=== PATIENT | female | born 1960 | race Caucasian/White ===

== ENCOUNTER → 2017-07-19 12:50 | Outpatient (CLI) | payer OTHER, SELFPAY ==
--- NOTE | 2017-07-19 12:53 | HPBD_ITS ---
STUDY: DUAL ENERGY X-RAY ABSORPTIOMETRY / DXA REASON FOR EXAM: Female, 56 years old. Postmenopausal female. Patient taking calcium and exercising. TECHNIQUE: Bone Mineral Density (BMD) measurements of lumbar spine and bilateral hips were obtained. COMPARISON: None. FINDINGS: Lumbar Spine (L1-L4): g/cm2 (0.941) / T-score (-2.0) / Z-score (-1.0) Findings are suggestive of osteoporosis with a high fracture risk. Left Femur Total: g/cm2 (0.787) / T-score (-1.8) / Z-score (-1.0) Left Femoral Neck: g/cm2 (0.747) / T-score (-2.1) / Z-score (-1.0) Right Femur Total: g/cm2 (0.793) / T-score (-1.7) / Z-score (-1.0) Right Femoral Neck: g/cm2 (0.727) / T-score (-2.2) / Z-score (-1.1) HPBD/Dexa Bone Density Study (HP) IMPRESSION: The patient is considered osteoporotic as outlined below according to World Jamel Organization (WHO) criteria with a high fracture risk. Reference Information: The T-score is the number of standard deviations above or below the standard which is normal for young adults at their peak bone mineral density. The World Health Organization (WHO) interprets the T-scores as follows: Above -1 Normal bone density Between -1 and -2.5 Osteopenia Equal to / or below -2.5 Osteoporosis As a practical clinical guideline, osteopenia may be graded as follows: Mild -1 through -1.5 Moderate -1.6 through -2.0 Severe -2.1 through -2.4 The Z-score is the number of standard deviations above or below age-matched controls. A Z-score of less than -1.5 would be considered abnormal. References: 1. NIH Osteoporosis and Related Bone Diseases http://www.osteo.org 2. International Society for Clinical Densitometry http://www.iscd.org 3. National Osteoporosis Foundation http://www.nof.org Electronically Signed: Mauro Benitez DO at 8:38 EDT Tel [phone], Service support ,
== END ==
PROVIDERS: Family Provider Family Medicine; PCP Family Medicine; Visit Provider Family Medicine
DX: L40.50 Arthropathic psoriasis, unspecified (principal)
CPT/HCPCS: 77080

== ENCOUNTER → 2017-11-15 15:57 | Outpatient (CLI) | payer OTHER, SELFPAY ==
[2017-11-15 18:26] LABS: Anion Gap 7 (5-15); BUN 15 mg/dL (7-18); BUN/Creat Ratio 16.3 RATIO (10-20); Calcium,Total 9.2 mg/dL (8.5-10.1); Chloride 103 mmol/L (98-107); Creatinine, Serum 0.92 mg/dL (0.55-1.02); EST Glomerular Filtration Rate 67 mL/min (>60); Est Glom Filt Rate - Afr Amer 81 mL/min (>60); Glucose 76 mg/dL (74-106); Potassium 3.8 mmol/L (3.5-5.1); Sodium Level 140 mmol/L (136-145); T4 Free Direct 1.07 ng/dL (0.76-1.46); Thyroid Stim Hormone (TSH) 2.11 uIU/mL (0.358-3.74)
[2017-11-16 08:34] LABS: Vitamin D,25 Hydroxy 32.3 ng/mL (29.95-100.01)
== END ==
PROVIDERS: Family Provider Family Medicine; PCP Family Medicine; Visit Provider Family Medicine
DX: M85.80 Other specified disorders of bone density and structure, unspecified site (principal); E03.9 Hypothyroidism, unspecified
CPT/HCPCS: 36415; 80048; 82306; 84439; 84443

== ENCOUNTER → 2018-06-07 08:28 | Outpatient (CLI) | payer OTHER, SELFPAY ==
[2018-06-07 10:29] LABS: Erythrocyte Sedimentation Rate 4 mm/hr (0-30)
[2018-06-07 10:30] LABS: Hematocrit 38.7 % (37-47); Hemoglobin 12.3 g/dl (12.0-15.0); Mean Corp Hgb Conc 31.8 g/gl (32-36); Mean Corpuscular Hgb 30.1 pg (27.0-32.0); Mean Corpuscular Volume 94.6 fL (81-99); Mean Platelet Vol. 11.5 fl (6.2-12.0); Platelet Count 237 K/mm3 (150-450); RBC Distribution Width SD 44.9 fl (35.1-43.9); Red Blood Count 4.09 M/mm3 (4.2-5.4); White Blood Count 3.5 K/mm3 (4.4-11.0)
[2018-06-07 10:33] LABS: Scan Indicated on CBC? Y/N NO
[2018-06-07 10:41] LABS: Vitamin B12 1341 pg/mL (211-911); Vitamin D,25 Hydroxy 34.2 ng/mL (29.95-100.01)
[2018-06-07 10:44] LABS: AST(SGOT) 18 U/L (15-37); Alanine Aminotransfer ALT/SGPT 26 U/L (13-56); Albumin, Serum 3.8 g/dL (3.2-5.0); Alkaline Phosphatase 56 U/L (45-117); Anion Gap 8 (5-15); BUN 16 mg/dL (7-18); BUN/Creat Ratio 17.6 RATIO (10-20); Calcium,Total 8.9 mg/dL (8.5-10.1); Chloride 105 mmol/L (98-107); Creatinine, Serum 0.91 mg/dL (0.55-1.02); EST Glomerular Filtration Rate 68 mL/min (>60); Est Glom Filt Rate - Afr Amer 82 mL/min (>60); Ferritin 39 ng/mL (8-252); Free T3 2.2 pg/mL (2.18-3.98); Globulin 3.8 g/dL (2.2-4.2); Glucose 53 mg/dL (74-106); Iron 78 ug/dL (50-170); Potassium 3.6 mmol/L (3.5-5.1); Protein, Total 7.6 g/dL (6.4-8.2); Sodium Level 144 mmol/L (136-145); Thyroid Stim Hormone (TSH) 0.78 uIU/mL (0.358-3.74)
[2018-06-09 19:45] LABS: ANTINUCLEAR ANTIBODIES DIRECT Negative (Negative)
[2018-06-12 11:15] LABS: Vitamin B1, Thiamine 107.4 nmol/L (66.5-200.0)
== END ==
PROVIDERS: Family Provider Family Medicine; PCP Family Medicine; Visit Provider Family Medicine
DX: L40.50 Arthropathic psoriasis, unspecified (principal); L65.9 Nonscarring hair loss, unspecified; E03.9 Hypothyroidism, unspecified
CPT/HCPCS: 80053; 82306; 82607; 82728; 83540; 84425; 84439; 84443; 84481; 85027; 85652; 86038

== ENCOUNTER → 2018-06-19 10:06 | Outpatient (CLI) | payer OTHER, SELFPAY ==
[2018-06-22 12:23] LABS: Thyroid Peroxidase AB 24 IU/mL (0-34)
== END ==
PROVIDERS: Family Provider Family Medicine; PCP Family Medicine; Referring Provider Dermatology Pediatric Dermatology; Visit Provider Dermatology Pediatric Dermatology
DX: L65.0 Telogen effluvium (principal); L40.0 Psoriasis vulgaris; L40.59 Other psoriatic arthropathy
CPT/HCPCS: 36415; 86376

== ENCOUNTER 2018-11-05 20:07 | Emergency (ER) | payer OTHER, SELFPAY ==
[2018-11-05 20:09] VITALS: BP 182/99; PULSE 69; RESP 12; TEMP 36.9; O2SAT 99; BMI 19.8
--- NOTE | 2018-11-05 20:09 | ED.RN ---
CALLED FOR EKG PER RN REQUEST, PULLED OLD EKGS FOR
--- NOTE | 2018-11-05 20:13 | RAD_ITS ---
STUDY: X-RAY CHEST REASON FOR EXAM: Female, 58 years old. Chest pain TECHNIQUE: Single AP portable view of the chest. COMPARISON: 06/16/2013 FINDINGS: There is hyperinflation of the lungs consistent with chronic obstructive lung disease (COPD). There is no demonstrated pleural abnormality. Normal size heart. Normal mediastinum and lian. Normal visualized pulmonary arteries. Normal visualized aortic arch and descending thoracic aorta. Normal visualized thoracic spine. Normal visualized ribs, clavicles, and shoulders. There is no demonstrated abnormality of the visualized soft tissue structures of the upper abdomen. RAD/Chest 1 View (Portable) IMPRESSION: Normal x-ray examination of the chest. Electronically Signed: Chase Alexander DO at 20:28 EDT Tel , Service support ,
--- NOTE | 2018-11-05 20:13 | EKG12_ITS ---
Test Reason : CP Blood Pressure : / mmHG Vent. Rate : 073 BPM Atrial Rate : 073 BPM P-R Int : 182 ms QRS Dur : 072 ms QT Int : 402 ms P-R-T Axes : 077 072 073 degrees QTc Int : 442 ms Sinus rhythm with occasional Premature ventricular complexes Septal infarct , age undetermined Abnormal ECG Confirmed by COURTNEY MITCHELL, CECILIO ([id number]), news copy editor BORIS LEVIN ([id number]) on 11/07/2018 1:55:56 PM Referred By: SID Confirmed By:CECILIO VALDEZ MD
[2018-11-05] MEDS: Aspirin 81 MG TAB.CHEW 324 MG PO (20:24)
[2018-11-05 20:37] LABS: Absolute Lymphocyte Count 2.08 X10^3/ul (0.83-4.51); Absolute Neutrophil Count 2.4 X10^3/uL (2.0-7.7); Basophil# 0.08 X10^3/uL; Basophil% 1.5 % (0-1); Eosinophil# 0.35 X10^3/uL; Eosinophils% 6.4 % (0-5); Hematocrit 37.7 % (37-47); Hemoglobin 12.5 g/dl (12.0-15.0); Lymphocyte # 2.08 X10^3/ul (4.0); Lymphocyte % 38.3 % (19-41); Mean Corp Hgb Conc 33.2 g/gl (32-36); Mean Corpuscular Hgb 30.1 pg (27.0-32.0); Mean Corpuscular Volume 90.8 fL (81-99); Mean Platelet Vol. 10.9 fl (6.2-12.0); Monocyte# 0.54 X10^3/uL; Monocyte% 9.9 % (0-10); Neutrophil # 2.38 X10^3/uL (2.7-7.7); Neutrophil % 43.9 % (47-70); Platelet Count 243 K/mm3 (150-450); RBC Distribution Width CV 13.3 % (11.6-14.6); RBC Distribution Width SD 43.7 fl (35.1-43.9); Red Blood Count 4.15 M/mm3 (4.2-5.4); White Blood Count 5.4 K/mm3 (4.4-11.0)
[2018-11-05 20:38] LABS: POSITIVE COUNT NO; POSITIVE DIFFERENTIAL NO; POSITIVE MORPHOLOGY NO
[2018-11-05 20:54] LABS: Anion Gap 7 (5-15); BUN 15 mg/dL (7-18); BUN/Creat Ratio 16.7 RATIO (10-20); Calcium,Total 9.3 mg/dL (8.5-10.1); Chloride 105 mmol/L (98-107); EST Glomerular Filtration Rate 68 mL/min (>60); Est Glom Filt Rate - Afr Amer 83 mL/min (>60); Estimated Creatinine Clearance 63.78 ml/min; Glucose 97 mg/dL (74-106); Potassium 3.5 mmol/L (3.5-5.1); Sodium Level 142 mmol/L (136-145)
--- NOTE | 2018-11-05 21:25 | ED.DCSUM_ITS ---
- ER Visit Summary Date of Service: 11/05/18 Chief Complaint: Chest pain History of Present Illness: The patient is a 58 F history of arthritis depression, anxiety and her . No cardiac history. Patient states since 11 PM last night before going to bed she had a tightness in her chest and soreness to her chest wall. He denies any falls or trauma. This is not exertional. She is had no recent exertional chest pain or exertional shortness of breath. No chest pain the last several weeks. She has had no prior stress test or heart cath. She denies any leg pain or swelling. No hemoptysis. It is not pleuritic. No significant family history of cardiac disease. She does not smoke. Physical Examination: Well-appearing female. No acute distress. Vital signs stable afebrile. Pulse-99% room air no hypoxia. HEENT exam is negative nontender. Lungs clear to auscultation bilaterally. Heart regular rate and rhythm no murmur. She has mild tenderness left anterior chest.. There is no bruising. No crepitus. No rash, bruising or redness. Abdomen soft nontender normal bowel sounds no peritoneal signs. Patient moving all 4 extremities. Pulses are equal symmetrical. Equal symmetrical [employer] strength. Dorsi plantar flexion intact. Calves are nontender without edema or cords. Neurologically she is awake and alert with no focal motor deficits. She is mildly anxious. Test Results: EKG shows sinus rhythm rate of 73 with a few PVCs. No signs of PA or ischemia and unchanged from prior EKG from 2014. Chest x-ray portable one view shows a normal cardiac silhouette nighttime unremarkable read by myself the radiologist.. Blood pressure is normal. Troponin normal. This patient had about 21 hours of constant pain. Emergency Department Course and Treatment: Patient with atypical nonexertional chest pain with limited risk factors. Cardiac work-up is negative. There is a reproducible component to the pain. Repeat exam doing well at 2121 PM. History discussed all her test results. Her and her are current with her being discharged home with follow-up with her primary care physician. She knows to return if worse. Treatment Plan: Follow-up with primary care physician. Motrin for pain. Return if worse. Disposition: Discharge Impression: Chest pain of uncertain etiology Chest wall pain This note was generated with [employer] software. It may contain incorrect words, spelling, and punctuation that were not noted in review of the chart prior to signing ED Disposition - Plan for ED Patient: Referrals: Edis Cooper MD [Primary Care Provider] -
[2018-11-05 21:28] VITALS: BP 148/80; PULSE 68; RESP 14; O2SAT 98
--- NOTE | 2018-11-05 21:32 | ED.DEP ---
ED Disposition - Plan for ED Patient: Disposition: Home or Assisted Living Instructions: CHEST PAIN, Uncertain Cause Referrals: Edis Cooper MD [Primary Care Provider] - As soon as possible Additional Instructions: Follow-up with your doctor. Return to ER if you are feeling a lot worse such as increasing pain, shortness of breath, nausea or breaking out in sweats. Your pain is atypical and is not classic for cardiac chest pain. Motrin for pain ice to your chest wall. Also follow-up with primary care physician. They may want to consider an outpatient stress test.
== END 2018-11-05 21:36 | disposition home or self-care (01) ==
PROVIDERS: Emergency Provider Emergency Medicine; Family Provider Family Medicine; PCP Family Medicine
DX: R07.89 Other chest pain (principal); I49.3 Ventricular premature depolarization; F32.9 Major depressive disorder, single episode, unspecified; F41.9 Anxiety disorder, unspecified; M19.90 Unspecified osteoarthritis, unspecified site; E03.9 Hypothyroidism, unspecified; Z79.899 Other long term (current) drug therapy
CPT/HCPCS: 71045; 80048; 84484; 85025; 93005; 99285; A4216

== ENCOUNTER → 2019-08-28 15:06 | Outpatient (CLI) | payer OTHER, SELFPAY ==
[2019-08-28 18:06] LABS: Vitamin D,25 Hydroxy 49.4 ng/mL
[2019-08-28 18:17] LABS: AST(SGOT) 18 U/L (15-37); Alanine Aminotransfer ALT/SGPT 27 U/L (13-56); Alkaline Phosphatase 62 U/L (45-117); Anion Gap 3 (5-15); BUN 13 mg/dL (7-18); Calcium,Total 8.8 mg/dL (8.5-10.1); Chloride 103 mmol/L (98-107); EST Glomerular Filtration Rate 60 mL/min (>60); Est Glom Filt Rate - Afr Amer 73 mL/min (>60); Ferritin 36 ng/mL (8-252); Globulin 3.9 g/dL (2.2-4.2); Glucose 92 mg/dL (74-106); Iron 95 ug/dL (50-170); Potassium 3.8 mmol/L (3.5-5.1); Protein, Total 7.9 g/dL (6.4-8.2); Sodium Level 137 mmol/L (136-145); T4 Free Direct 1.15 ng/dL (0.76-1.46); Thyroid Stim Hormone (TSH) 3.95 uIU/mL (0.358-3.74)
== END ==
PROVIDERS: PCP Family Medicine; Visit Provider Family Medicine
DX: K58.9 Irritable bowel syndrome, unspecified (principal); D64.9 Anemia, unspecified; E03.9 Hypothyroidism, unspecified
CPT/HCPCS: 36415; 80053; 82306; 82728; 83540; 84439; 84443

== ENCOUNTER → 2019-10-31 10:49 | Outpatient (CLI) | payer OTHER, SELFPAY ==
[2019-10-31 13:10] LABS: T4 Free Direct 1.11 ng/dL (0.76-1.46); Thyroid Stim Hormone (TSH) 0.94 uIU/mL (0.358-3.74)
== END ==
PROVIDERS: PCP Family Medicine; Referring Provider Family Medicine; Visit Provider Family Medicine
DX: E03.9 Hypothyroidism, unspecified (principal)
CPT/HCPCS: 36415; 84439; 84443

== ENCOUNTER → 2019-11-14 10:21 | Outpatient (CLI) | payer OTHER, SELFPAY ==
--- NOTE | 2019-11-14 10:24 | BI_ITS ---
MAMMOGRAPHY - BILATERAL SCREENING 3-D TOMOSYNTHESIS REASON FOR EXAM: Female, 59 years old. Routine screening PERTINENT HISTORY: NO FM HX , CURRENT SYNTHROID SINCE 1980, LT MOLE. TECHNIQUE: 2-D mammograms and 3-D Tomosynthesis of the breast (s) were performed. CAD was performed. COMPARISON: 05/25/2016 FINDINGS: The breast composition is composed of scattered fibroglandular density. Scattered benign calcifications are seen. No dense spiculated masses or suspicious microcalcifications are identified. Stable scattered punctate microcalcifications again noted. No architectural distortion is identified. There is no skin thickening or retraction. There has been no significant change since the prior study. BI/SCREEN MAMM (CAD) W/HERRERA BILAT IMPRESSION: No mammographic signs of malignancy. Routine yearly mammograms recommended. ASSESSMENT CATEGORY: BIRADS Category 2: Benign. A letter regarding these results will be sent to the patient by the facility within 30 days. FOLLOW UP RECOMMENDATION: Yearly follow up mammogram recommended. (A) Approximately 10% of breast cancers are not detected by mammography. A normal mammogram should not delay biopsy of a clinically suspicious abnormality. Electronically Signed: Juanjo Morales MD at 11:37 EDT , Service support ,
== END ==
PROVIDERS: PCP Family Medicine; Referring Provider Obstetrics & Gynecology; Visit Provider Obstetrics & Gynecology
DX: Z12.31 Encounter for screening mammogram for malignant neoplasm of breast (principal)
CPT/HCPCS: 77063; 77067

== ENCOUNTER → 2020-09-05 08:55 | Outpatient (CLI) | payer OTHER, SELFPAY ==
[2020-09-05 10:51] LABS: Anion Gap 4 (5-15); BUN 14 mg/dL (7-18); BUN/Creat Ratio 15.3 RATIO (10-20); Chloride 105 mmol/L (98-107); Cholesterol 192 mg/dL (200); Creatinine, Serum 0.92 mg/dL (0.55-1.02); EST Glomerular Filtration Rate 66 mL/min (>60); Est Glom Filt Rate - Afr Amer 80 mL/min (>60); Glucose 90 mg/dL (74-106); High Density Lipoprotein 76 mg/dL; Potassium 3.8 mmol/L (3.5-5.1); Sodium Level 142 mmol/L (136-145); Thyroid Stim Hormone (TSH) 0.15 uIU/mL (0.358-3.74); Triglycerides 44 mg/dL; Very Low Density Lipoprotein 9 mg/dL (5-40)
[2020-09-05 11:35] LABS: Vitamin D,25 Hydroxy 68.2 ng/mL
== END ==
PROVIDERS: PCP Family Medicine; Referring Provider Family Medicine; Visit Provider Family Medicine
DX: Z13.1 Encounter for screening for diabetes mellitus (principal); Z13.220 Encounter for screening for lipoid disorders; L40.50 Arthropathic psoriasis, unspecified; E03.9 Hypothyroidism, unspecified; F51.02 Adjustment insomnia
CPT/HCPCS: 36415; 80048; 80061; 82306; 84443

== ENCOUNTER → 2020-09-17 10:55 | Outpatient (CLI) | payer OTHER, SELFPAY ==
--- NOTE | 2020-09-17 10:58 | BD_ITS ---
STUDY: DUAL ENERGY X-RAY ABSORPTIOMETRY / DXA REASON FOR EXAM: Female, 60 years old. [id number]. The patient is postmenopausal. TECHNIQUE: Bone Mineral Density (BMD) measurements of lumbar spine and bilateral hips were obtained. COMPARISON: Comparison is made with prior study dated 07/19/2017. FINDINGS: Lumbar Spine (L1-L4): g/cm2 (0.834) / T-score (-2.9) / Z-score (-1.7) Findings are suggestive of osteoporosis with a high fracture risk. Left Femur Total: g/cm2 (0.712) / T-score (-2.3) / Z-score (-1.4) Left Femoral Neck: g/cm2 (0.670) / T-score (-2.6) / Z-score (-1.4) Right Femur Total: g/cm2 (0.722) / T-score (-2.3) / Z-score (-1.3) Right Femoral Neck: g/cm2 (0.654) / T-score (-2.8) / Z-score (-1.5) The T-Scores on the most recent prior examination were: Lumbar Spine (L1-L4): There has been worsening of bone density since the previous examination. Left Femur Total: which represents a worsening of 9.5%. Right Femur Total: which represents a worsening of 9%. BD/Dexa Bone Density Study IMPRESSION: The patient is considered osteoporotic as outlined below according to World Jamel Organization (WHO) criteria with a high fracture risk. There has been worsening of bone density since the previous examination. Reference Information: The T-score is the number of standard deviations above or below the standard which is normal for young adults at their peak bone mineral density. The World Health Organization (WHO) interprets the T-scores as follows: Above -1 Normal bone density Between -1 and -2.5 Osteopenia Equal to / or below -2.5 Osteoporosis As a practical clinical guideline, osteopenia may be graded as follows: Mild -1 through -1.5 Moderate -1.6 through -2.0 Severe -2.1 through -2.4 The Z-score is the number of standard deviations above or below age-matched controls. A Z-score of less than -1.5 would be considered abnormal. References: 1. NIH Osteoporosis and Related Bone Diseases www osteo.org 2. International Society for Clinical Densitometry www iscd.org 3. National Osteoporosis Foundation www nof.org Electronically Signed: Corona Jones MD at 15:32 EDT , Service support ,
== END ==
PROVIDERS: PCP Family Medicine; Referring Provider Family Medicine; Visit Provider Family Medicine
DX: M81.0 Age-related osteoporosis without current pathological fracture (principal); M85.80 Other specified disorders of bone density and structure, unspecified site; Z78.0 Asymptomatic menopausal state
CPT/HCPCS: 77080

== ENCOUNTER → 2021-02-26 15:15 | Outpatient (CLI) | payer OTHER, SELFPAY ==
[2021-02-26 18:41] LABS: Magnesium 2.3 mg/dL (1.6-2.6); Thyroid Stim Hormone (TSH) 0.66 uIU/mL (0.358-3.74)
[2021-02-27 08:14] LABS: PTHIN 44.1 pg/mL (18.4-80.1)
== END ==
PROVIDERS: PCP Family Medicine; Referring Provider Family Medicine; Visit Provider Family Medicine
DX: M81.0 Age-related osteoporosis without current pathological fracture (principal); E03.9 Hypothyroidism, unspecified
CPT/HCPCS: 36415; 82330; 83735; 83970; 84443

== ENCOUNTER → 2021-04-23 | Outpatient (CLI) | payer OTHER, SELFPAY | END | disposition home or self-care (01) | PROVIDERS: PCP Family Medicine; Visit Provider Nurse Practitioner Family | DX: Z20.822 Contact with and (suspected) exposure to COVID-19 (principal) | CPT/HCPCS: 87635; U0003; U0005 ==

== ENCOUNTER → 2022-07-27 | Outpatient (CLI) | payer OTHER, SELFPAY ==
[2022-07-27 17:53] LABS: Absolute Lymphocyte Count 1.52 X10^3/uL (0.83-4.51); Absolute Neutrophil Count 3.2 X10^3/uL (2.0-7.7); Basophil# 0.09 X10^3/uL; Basophil% 1.7 % (0-1); Eosinophil# 0.21 X10^3/uL; Eosinophils% 3.9 % (0-5); Hematocrit 37.9 % (37-47); Lymphocyte # 1.52 X10^3/ul (0.83-4.51); Lymphocyte % 28.4 % (19-41); Mean Corp Hgb Conc 31.7 g/dL (32-36); Mean Corpuscular Hgb 30.4 pg (27.0-32.0); Mean Corpuscular Volume 95.9 fL (81-99); Mean Platelet Vol. 12.3 fl (6.2-12.0); Monocyte# 0.36 X10^3/uL; Monocyte% 6.7 % (0-10); NRBC Flagged by Analyzer 0 % (0-5); Neutrophil # 3.17 X10^3/uL (2.7-7.7); Neutrophil % 59.1 % (47-70); Platelet Count 186 K/mm3 (150-450); RBC Distribution Width CV 13.3 % (11.6-14.6); RBC Distribution Width SD 47.6 fl (35.1-43.9); Red Blood Count 3.95 M/mm3 (4.2-5.4); White Blood Count 5.4 K/mm3 (4.4-11.0)
[2022-07-27 18:10] LABS: Erythrocyte Sedimentation Rate 2 mm/hr (0-30)
[2022-07-27 18:37] LABS: Vitamin B12 613 pg/mL (211-911); Vitamin D,25 Hydroxy 93.7 ng/mL
[2022-07-27 18:40] LABS: ALB/GLOB Ratio 1.3 RATIO (0.9-2.4); AST(SGOT) 22 U/L (15-37); Alanine Aminotransfer ALT/SGPT 23 U/L (13-56); Albumin, Serum 3.9 g/dL (3.2-5.0); Alkaline Phosphatase 58 U/L (45-117); Anion Gap 6 (5-15); BUN 13 mg/dL (7-18); BUN/Creat Ratio 13.5 RATIO (10-20); Calcium,Total 8.8 mg/dL (8.5-10.1); Chloride 105 mmol/L (98-107); Creatinine, Serum 0.96 mg/dL (0.55-1.02); EST Glomerular Filtration Rate 63 mL/min (>60); Est Glom Filt Rate - Afr Amer 76 mL/min (>60); Ferritin 31 ng/mL (8-252); Glucose 115 mg/dL (74-106); Iron 82 ug/dL (50-170); Potassium 3.9 mmol/L (3.5-5.1); Protein, Total 6.9 g/dL (6.4-8.2); Sodium Level 138 mmol/L (136-145); Thyroid Stim Hormone (TSH) 1.17 uIU/mL (0.358-3.74)
[2022-07-28 08:10] LABS: PTHIN 37.8 pg/mL (18.4-80.1)
== END | disposition home or self-care (01) ==
PROVIDERS: PCP Family Medicine; Referring Provider Family Medicine; Visit Provider Family Medicine
DX: D64.9 Anemia, unspecified (principal); L40.50 Arthropathic psoriasis, unspecified; K58.9 Irritable bowel syndrome, unspecified; M81.0 Age-related osteoporosis without current pathological fracture; E03.9 Hypothyroidism, unspecified
CPT/HCPCS: 36415; 80053; 82306; 82330; 82607; 82728; 83540; 83970; 84443; 85025; 85652

== ENCOUNTER → 2023-06-08 | Outpatient (CLI) | payer OTHER, SELFPAY ==
[2023-06-08 17:41] LABS: Hematocrit 38.6 % (37-47); Hemoglobin 12.2 g/dL (12.0-15.0); Mean Corp Hgb Conc 31.6 g/dL (32-36); Mean Corpuscular Hgb 29.8 pg (27.0-32.0); Mean Corpuscular Volume 94.4 fL (81-99); Mean Platelet Vol. 11.8 fl (6.2-12.0); Platelet Count 240 K/mm3 (150-450); RBC Distribution Width CV 12.9 % (11.6-14.6); RBC Distribution Width SD 44.2 fl (35.1-43.9); Red Blood Count 4.09 M/mm3 (4.2-5.4); White Blood Count 6.7 K/mm3 (4.4-11.0)
[2023-06-08 17:49] LABS: Vitamin D,25 Hydroxy 91.5 ng/mL
[2023-06-08 18:01] LABS: ALB/GLOB Ratio 1.2 RATIO (0.9-2.4); AST(SGOT) 19 U/L (15-37); Alanine Aminotransfer ALT/SGPT 23 U/L (13-56); Albumin, Serum 4.1 g/dL (3.2-5.0); Alkaline Phosphatase 69 U/L (45-117); Anion Gap 4 (5-15); BUN 10 mg/dL (7-18); BUN/Creat Ratio 11.9 RATIO (10-20); Calcium,Total 9.4 mg/dL (8.5-10.1); Chloride 99 mmol/L (98-107); Cholesterol 178 mg/dL (200); Creatinine, Serum 0.84 mg/dL (0.55-1.02); EST Glomerular Filtration Rate 73 mL/min (>60); Est Glom Filt Rate - Afr Amer 88 mL/min (>60); Globulin 3.5 g/dL (2.2-4.2); Glucose 86 mg/dL (74-106); High Density Lipoprotein 89 mg/dL; Magnesium 2.2 mg/dL (1.6-2.6); Potassium 3.6 mmol/L (3.5-5.1); Protein, Total 7.6 g/dL (6.4-8.2); Sodium Level 133 mmol/L (136-145); Triglycerides 45 mg/dL; Very Low Density Lipoprotein 9 mg/dL (5-40)
--- OUTSIDE RECORDS SUMMARY | 2023-06-08 19:08 | XMS RPT_ITS | CCD ---
Author Name Unknown Address [address] [place] [address] [place], [place] [id number] Organization [facility] Care Team Providers Care Information Writer Name Role Phone Emmanuel Daigle Primary Care Provider [phone] Margarita MITCHELL, Christopher Whitaker Unavailable Allergies Allergy Classification Reported Allergen(s) Allergy Type Date of Onset Reaction(s) Facility (1 source) Sulfamethoxazole / Trimethoprim Drug Allergy 02-04-20 [facility] (1 source) Sulfonamides (Antibiotic) Propensity to adverse reactions 06-17-19 09 [facility] (1 source) Ibuprofen Drug Allergy 11-15-19 19 [facility] Work Phone: (1 source) Sulfacetamide Drug Allergy 11-15-19 19 [facility] Work Phone: (1 source) Wheat preparation Drug Allergy 11-15-19 19 [facility] Work Phone: (1 source) PLANT POLLENS drug allergy 11-15-19 19 [place] [facility] Work Phone: Medications Completed/Discontinued Medications Medication Drug Class(es) Dates Sig (Normalized) Sig (Original) B COMPLEX VITAMINS (1 source) Start: 11-14-2018 B COMPLEX TABS Take one tablet once daily B COMPLEX VITAMINS [id number] Janell John clonazePAM 0.25 mg disintegrating oral tablet (1 source) Benzodiazepine Start: 11-14-2018 CLONAZEPAM 0.25 MG TBDP as needed as directed CLONAZEPAM [id number] Janell John levothyroxine sodium 0.1 mg oral tablet (1 source) l-Thyroxine Start: 11-14-2018 SYNTHROID 100 MCG TABS Take one tablet once daily LEVOTHYROXINE SODIUM [id number] Janell John MULTIPLE VITAMINS-MINERALS (1 source) Start: 11-14-2018 ONE DAILY MULTIVITAMIN ADULT TABS Take one tablet once daily MULTIPLE VITAMINS-MINERALS [id number] Janell John OMEGA-3 FATTY ACIDS (1 source) Start: 11-14-2018 FISH OIL CONCENTRATE 300 MG CAPS Take one capsule once daily OMEGA-3 FATTY ACIDS [id number] Janell John TURMERIC CAPS (1 source) Start: 11-14-2018 TURMERIC CAPS Take one capsule once daily TURMERIC CAPS [id number] Janell John 24 hr venlafaxine 37.5 mg extended release oral capsule (1 source) Serotonin and Norepinephrine Reuptake Inhibitor Start: 11-14-2018 VENLAFAXINE HCL ER 37.5 MG [id number] Take one capsule once daily VENLAFAXINE HCL [id number] Janell John Problems Active Problems Problem Classification Problem Date Documented Da te Episodic/Chronic Thyroid disorders (1 source) Hypothyroidism; Translations: [Unspecified hypothyroidism] Onset: 05-28-2008 05-28-2008 Chronic Past or Other Problems Problem Classification Problem Date Documented Da te Episodic/Chronic Allergic reactions (2 sources) Solar degeneration; Translations: [Contact dermatitis due to solar radiation] Onset: 01-06-2007 06-23-2009 Episodic Melanomas of skin (1 source) History of malignant melanoma of the skin; Translations: [Personal history of malignant melanoma of skin] Onset: 01-06-2007 06-23-2009 Episodic Other and unspecified benign neoplasm (2 sources) Benign neoplasm of skin of lower limb; 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] Onset: 11-14-2006 06-23-2009 Episodic Other and unspecified benign neoplasm (1 source) Benign neoplasm of skin of upper limb; Translations: [Benign neoplasm of skin of upper limb, including shoulder] Onset: 11-14-2006 11-14-2006 Episodic Other and unspecified benign neoplasm (1 source) Benign neoplasm of skin of face; Translations: [Benign neoplasm of skin of other and unspecified parts of face] Onset: 11-14-2006 11-14-2006 Episodic Other and unspecified benign neoplasm (1 source) Benign tumor of head and neck; Translations: [Benign neoplasm of scalp and skin of neck] Onset: 11-14-2006 11-14-2006 Episodic Other and unspecified benign neoplasm (2 sources) Melanocytic nevus of lower limb; Translations: [Melanocytic nevi of lower limb, including hip] Onset: 06-23-2009 06-23-2009 Episodic Other and unspecified benign neoplasm (1 source) Melanocytic nevus of trunk; Translations: [Melanocytic nevus of trunk] Onset: 06-23-2009 06-23-2009 Episodic Other and unspecified benign neoplasm (1 source) Benign neoplasm of skin of trunk; Translations: [Benign neoplasm of skin of trunk, except scrotum] Onset: 11-14-2006 11-14-2006 Episodic Other circulatory disease (1 source) Non-neoplastic nevus; Translations: [Nevus, non-neoplastic] Onset: 11-14-2006 11-14-2006 Episodic Other circulatory disease (1 source) Spider nevus; Translations: [Capillary angioma] Onset: 06-23-2009 06-23-2009 Episodic Other connective tissue disease (1 source) Ganglion of flexor tendon sheath of finger; Translations: [Ganglion, unspecified hand] Onset: 11-16-2018 11-16-2018 Episodic Other injuries and conditions due to external causes (1 source) Abrasion and/or friction burn of skin; Translations: [Abrasion or friction burn of other, multiple, and unspecified sites, without mention of infection] Onset: 01-06-2007 01-06-2007 Episodic Other skin disorders (1 source) Scar conditions and fibrosis of skin; Translations: [Scar condition and fibrosis of skin] Onset: 11-14-2006 06-23-2009 Episodic Other skin disorders (1 source) Senile lentigo; Translations: [Solar lentigo] Onset: 06-23-2009 06-23-2009 Episodic Other skin disorders (1 source) Disorder of skin pigmentation; Translations: [Other dyschromia] Onset: 11-14-2006 11-14-2006 Episodic Spondylosis; intervertebral disc disorders; other back problems (1 source) Low back pain; Translations: [Lumbago] Onset: 02-01-2006 02-01-2006 Episodic Unclassified (1 source) Problem Results Test Name Value Interpretation Reference Range Facil ity Vital Signs Date Time Vital Sign Value Performing Clinician Facility NEGATED: Highlighted [id number] 14:06-0400 BMI (Body Mass Index) 20.44 kg/m2 Ruab Serrilli IR[employer] CASTER [facility] Work Phone: NEGATED: Highlighted [id number] 14:06-0400 Body weight 59.88 kg Ruba Serrilli IR[employer] CASTER [facility] Work Phone: NEGATED: Highlighted [id number] 14:06-0400 Body weight 60 kg Ruba Serrilli IR[employer] CA[employer] [facility] Work Phone: NEGATED: Highlighted [id number] 14:06-0400 BP Diastolic 73 mm[Hg] Ruba Serrilli IRON CASTER [facility] Work Phone: NEGATED: Highlighted [id number] 14:06-0400 BP Systolic 135 mm[Hg] Ruba Serrilli IR[employer] CASTER [facility] Work Phone: NEGATED: Highlighted [id number] 14:06-0400 Height 171.45 cm Ruba Serrilli IR[employer] CASTER [facility] Work Phone: NEGATED: Highlighted [id number] 14:06-0400 Height 171 cm Ruba Serrilli IRON CASTER [facility] Work Phone: NEGATED: Highlighted [id number] 14:06-0400 Pulse (Heart Rate) 76 /min Ruba Serrilli IR[employer] CASTER [facility] Work Phone: Encounters Encounter Date Encounter Type Care Provider Facility Start: 11-16-2018 End: 11-16-2018 Patient encounter procedure Christopher Avila MD Work Phone: [facility] Work Phone: Start: 04-01-2006 End: 04-01-2006 Patient encounter procedure Eugene Momin Work Phone: [facility] Start: 04-01-2006 Results Only Eugene Gladys Liliane Work Phone: [facility] Procedures Date Procedure Procedure Detail Performing Clinician Start: 11-16-2018 End: 11-16-2018 Blood pressure within normal parameters - no follow-up required A Sherman Avila MD Work Phone: Start: 11-16-2018 End: 11-16-2018 BMI documented within normal parameters - no follow-up plan is required A Sherman Avila MD Work Phone: Start: 11-16-2018 End: 11-16-2018 Documentation of current medications Christopher Avila MD Work Phone: Start: 11-16-2018 End: 11-16-2018 Pain assessment not documented - reason not given A Sherman Avila MD Work Phone: Start: 11-16-2018 End: 11-16-2018 Tobacco non-user A Sherman Montero Work Phone: Start: 04-01-2006 CONVERTED SURGICAL PATHOLOGY Eugene Momin Work Phone: NEGATED: Highlighted rowStart: 11-16-2018 End: 11-16-2018 Documentation of current medications Ruba Leal LPN Plan of Treatment Date Care Activity Detail Author Start: 12-25-2019 Influenza vaccination INFLUENZA (#1) [facility] Start: 11-16-2018 End: 11-16-2018 [facility]: Start: 06-17-2011 DIABETES SCREEN DIABETES SCREEN [facility] Start: 2010 SHINGRIX VACCINE (1 of 2) SHINGRIX VACCINE (1 of 2) [facility] Start: 2010 Tuberculosis screening COLORECTAL CANCER SCREENING,SEE MODIFIER [facility] Start: 2005 LIPID SCREEN LIPID SCREEN [facility] Start: 2000 Mammography MAMMOGRAM [facility] Start: 1990 HPV TESTING HPV TESTING [facility] Start: 1981 PAP TESTING PAP TESTING [facility] Start: 08-06-1979 Urine microalbumin profile DTAP,TDAP,TD (1 - Tdap) [facility] Start: 1978 ANNUAL PCP TEAM CHRONIC DISEASE VISIT ANNUAL PCP TEAM CHRONIC DISEASE VISIT [facility] Start: 1978 HEPATITIS C SCREENING HEPATITIS C SCREENING [facility] Start: 1978 HIV SCREENING HIV SCREENING [facility] Payers Date Payer Category Payer Unknown [employer] [id number] 2002-2018 PPO [id number] Social History Date Type Detail Facility Start: 10-19-2005 Tobacco smoking stat us NHIS Never smoker [facility] Start: 10-19-2005 Alcohol intake Current non-dr heel edge inker machine of alcohol (finding) [facility] Sex Assigned At Not on file [facility] Start: 11-16-2018 End: 11-16-2018 Assertion Unknown if ever smoked [facility] Work Phone: History of Past Illness Problem Noted Date Resolved Date MALIGNANT MELANOMA///PERS HX SKIN MALIGNANCY NEC 11/14/2006 06/23/2009 Chief Complaint Chief Complaint Description Start Date left ring finger cysyt/ mass Preliminary chief co mplaint data, not yet signed by the author as of Instructions Instruction Description Start Date Completed Advance Directives There may be information available, but it has not been provided by the sender. Assessments There may be information available, but it has not been provided by the sender. Review of System There may be information available, but it has not been provided by the sender. Family History There may be information available, but it has not been provided by the sender. History of Present Illness There may be information available, but it has not been provided by the sender. Additional Source Comments Source Comments (unrecognize d section and content) In the event this informatio n is protected by the Federal Confidentiality of Alcohol and Drug Abuse Patient Records regulations: The Federal rules restrict any use of the information to criminally investigate or prosecute any alcohol or drug abuse patient.[facility] Reason for Visit (unrecogniz ed section and content) FOR RECORDS PERTAINING TO PATIENTS WHO ARE OR HAVE BEEN ENROLLED IN A CHEMICAL DEPENDENCY/SUBSTANCEABUSE PROGRAM, SOME INFORMATION MAY BE OMITTED. This clinical summary was aggregated from multiple sources. Caution should be exercised in using it in the provision of clinical care. This summary normalizes information from multiple sources, and as a consequence, information in this document may materially change the coding, format and clinical context of patient data. In addition, data may be omitted in some cases. CLINICAL DECISIONS SHOULD BE BASED ON THE PRIMARY CLINICAL RECORDS. [facility]. provides no warranty or guarantee of the accuracy or completeness of information in this document.
== END | disposition home or self-care (01) ==
LOC: MTLAB 15:48
PROVIDERS: PCP Family Medicine; Referring Provider Family Medicine; Visit Provider Family Medicine
DX: I10 Essential (primary) hypertension (principal); D64.9 Anemia, unspecified; E03.9 Hypothyroidism, unspecified
CPT/HCPCS: 36415; 80053; 80061; 82306; 83735; 84443; 85027

== ENCOUNTER → 2023-11-03 | Outpatient (CLI) | payer OTHER, SELFPAY ==
--- NOTE | 2023-11-03 09:23 | RAD_ITS ---
STUDY: X-RAY - CERVICAL SPINE REASON FOR EXAM: Female, 63 years old. Neck pain TECHNIQUE: 5 view(s) of the cervical spine were obtained. COMPARISON: None FINDINGS: Normal anterior atlantoaxial articulation. Normal odontoid process. Normal cervical lordosis. 2 mm of anterolisthesis of C5 on C6. Normal vertebral bodies and endplates. There is multi-level degenerative disc disease with multilevel disc space narrowing. Normal visualized intervertebral neuroforamina. The soft tissue structures are unremarkable. RAD/Cerv Spine 4 or 5 Views IMPRESSION: Degenerative disc disease lower cervical spine with 2 mm of anterolisthesis of C5 on C6. MRI may be useful to Electronically Signed: Jony Santiago MD at 10:20 EDT ,
== END | disposition home or self-care (01) ==
PROVIDERS: PCP Family Medicine; Referring Provider Family Medicine; Visit Provider Family Medicine
DX: M54.2 Cervicalgia (principal)
CPT/HCPCS: 72050

== ENCOUNTER → 2024-07-24 | Outpatient (CLI) | payer OTHER, SELFPAY ==
[2024-07-24 12:51] LABS: Microalbumin,Random Urine 26.9 mg/L (NO RANGE EST.)
[2024-07-24 13:09] LABS: ALB/GLOB Ratio 1.5 RATIO (0.9-2.4); AST(SGOT) 20 U/L (<=31); Alanine Aminotransfer ALT/SGPT 13 U/L (<=34); Albumin, Serum 4.3 g/dL (3.4-4.8); Alkaline Phosphatase 71 U/L (35-104); Anion Gap 10 (5-15); BUN 11 mg/dL (4-19); BUN/Creat Ratio 11.7 RATIO (10-20); Calcium,Total 9.4 mg/dL (7.6-11.0); Carbon Dioxide 28.8 mmol/L (21.0-32.0); Chloride 104 mmol/L (98-108); Cholesterol 189 mg/dL (<=200); Creatinine, Serum 0.98 mg/dL (0.70-1.20); EST Glomerular Filtration Rate 65 (>60); Globulin 2.9 g/dL (2.2-4.2); Glucose 84 mg/dL (70-99); High Density Lipoprotein 86 mg/dL; Low Density Lipoprotein Calc. 93 mg/dL; Potassium 3.8 mmol/L (3.3-5.1); Protein, Total 7.2 g/dL (5.9-8.4); Sodium Level 142 mmol/L (133-145); Thyroid Stim Hormone (TSH) 0.468 uIU/mL (0.300-4.200); Total Bilirubin 0.79 mg/dL (0.00-1.30); Triglycerides 49 mg/dL; Very Low Density Lipoprotein 10 mg/dL (5-40); Vitamin D,25 Hydroxy 59.5 ng/mL (30-100)
== END | disposition home or self-care (01) ==
PROVIDERS: PCP Family Medicine; Referring Provider Family Medicine; Visit Provider Family Medicine
DX: Z00.00 Encounter for general adult medical examination without abnormal findings (principal); I10 Essential (primary) hypertension; E03.9 Hypothyroidism, unspecified
CPT/HCPCS: 36415; 80053; 80061; 82043; 82306; 84443

== ENCOUNTER → 2025-03-29 | Outpatient (CLI) | payer BC, SELFPAY ==
--- OUTSIDE RECORDS SUMMARY | 2025-03-29 10:20 | XMS RPT_ITS | CCD ---
Author Organization [facility] Care Team Providers Care Hand Hardener Name Role Phone Pilo Emmanuel Primary Care Provider [phone] Margarita MITCHELL, Christopher Whitaker Unavailable [phone] Kenneth MITCHELL, Dr. Menon Primary Care Provider Kenneth MITCHELL, Dr. Menon Attending Provider [phone] Kenneth MITCHELL, Dr. Menon Referring Provider Alirio Madden Attending Unavailable Alirio Madden Referring Unavailable Sinan Cooper Primary Care Unavailable Sinan Cooper Primary Care Unavailable Sinan Cooper Attending Unavailable Sinan Cooper Referring Unavailable Allergies Allergy Classification Reported Allergen(s) Allergy Type Date of Onset Reaction(s) Facility (1 source) Sulfamethoxazole / Trimethoprim Drug Allergy 02-04-20 06 [facility] (5 sources) Sulfonamides (Antibiotic); Translations: [Sulfa (Sulfonamide Antibiotics)] Propensity to adverse reactions 06-17-19 09 Other [facility] (1 source) Ibuprofen Drug Allergy 11-15-19 19 [facility] Work Phone: (1 source) Sulfacetamide Drug Allergy 11-15-19 19 [facility] Work Phone: (1 source) Wheat preparation Drug Allergy 11-15-19 19 [facility] Work Phone: (1 source) PLANT POLLENS drug allergy 11-15-19 19 Hay Fever [facility] Work Phone: (3 sources) buPROPion Drug Allergy 11-06-19 19 Other [facility] Comment on above: PANIC ATTACK (3 sources) PARoxetine Drug Allergy 11-06-19 19 Diarrhea [facility] (1 source) buPROPion Drug Allergy 11-06-19 19 [facility] Repository (1 source) PARoxetine Drug Allergy 11-06-19 [facility] Repository Medications Current Medications Medication Drug Class(es) Dates Sig (Normalized) Sig (Original) levothyroxine sodium 0.1 mg oral tablet (4 sources) l-Thyroxine Start: 04-15-2014 take 1 tablet by mouth once daily Levothyroxine 100 MCG tablet Active 100 ug PO DAILY April 15, 2014 1:00am 24 hr venlafaxine 37.5 mg extended release oral capsule (4 sources) Serotonin and Norepinephrine Reuptake Inhibitor Start: 11-05-2018 take 1 capsule by mouth once daily Venlafaxine 37.5 MG capsule Active 37.5 mg PO DAILY November 05, 2018 12:00am Completed/Discontinued Medications Medication Drug Class(es) Dates Sig (Normalized) Sig (Original) B COMPLEX VITAMINS (1 source) Start: 11-14-2018 B COMPLEX TABS Take one tablet once daily B COMPLEX VITAMINS [id number] Janell John clonazePAM 0.25 mg disintegrating oral tablet (1 source) Benzodiazepine Start: 11-14-2018 CLONAZEPAM 0.25 MG TBDP as needed as directed CLONAZEPAM [id number] Janell John MULTIPLE VITAMINS-MINERALS (1 source) Start: 11-14-2018 ONE DAILY MULTIVITAMIN ADULT TABS Take one tablet once daily MULTIPLE VITAMINS-MINERALS [id number] Janell John OMEGA-3 FATTY ACIDS (1 source) Start: 11-14-2018 FISH OIL CONCENTRATE 300 MG CAPS Take one capsule once daily OMEGA-3 FATTY ACIDS [id number] Janell John TURMERIC CAPS (1 source) Start: 11-14-2018 TURMERIC CAPS Take one capsule once daily TURMERIC CAPS [id number] Janell John Problems Active Problems Problem Classification [...] Spondylosis; intervertebral disc disorders; other back problems (2 sources) Low back pain; Translations: [Cervicalgia] Onset: 02-01-2006 02-01-2006 Episodic Unclassified (1 source) Problem Results Test Name Value Interpretation Reference Range Facility Albumin DL <= 20 mg/L (U) [M ass/Vol]Ordered By: Sinan Cooper on 07-24-2024 Urine Random Microalbumin 26.9 mg/L NO RANGE EST. [facility] Anion gap in Serum or Plasma Ordered By: Sinan Cooper on 07-24-2024 Anion gap [Moles/Vol] 10 mmol/L 5-15 [facility] BUN/creatinine ratioOrdered By: Sinan Cooper on 07-24-2024 Urea nitrogen/Creatinine [Mass ratio] 11.7 mg/mg 10-20 [facility] Bilirubin, totalOrdered By: Sinan Cooper on 07-24-2024 Bilirubin [Mass/Vol] 0.79 mg/dL 0.00-1.30 [facility] Calculated very low density lipoprotein (VLDL) cholesterol measurementOrdered By: Sinan Cooper on 07-24-2024 VLDL Cholesterol 10 mg/dL 5-40 [facility] Carbon dioxide, total [Moles /volume] in Central venous bloodOrdered By: Sinan Cooper on 07-24-2024 CO2 [Moles/Vol] 28.8 mmol/L 21.0-32.0 [facility] Chloride assayOrdered By: John Cooper on 07-24-2024 Chloride [Moles/Vol] 104 mmol/L 98-108 [facility] Comprehensive Metabolic Prof ilon 07-24-2024 Albumin [Mass/Vol] 4.3 g/dL Normal 3.4-4.[address] [facility] Comment on above: Order Comment: Order Date: 12/27/23 Order Info: [id number] - CMP Order Info: - LIPID Order Info: [id number] - TSH Performed By: #### L 500.4100, L501.9520, L502.0500, L500.4050 #### [facility] Laboratory [address] [place], [address] Albumin/Globulin [Mass ratio] 1.5 {ratio} Normal 0.9-2.4 [facility] Comment on above: Order Comment: Order Date: 12/27/23 Order Info: [id number] - CMP Order Info: - LIPID Order Info: [id number] - TSH Performed By: #### L 500.4100, L501.9520, L502.0500, L500.4050 #### [facility] [address] [place], [address] ALK PHOS 71 U/L Normal 35-104 [facility] Comment on above: Order Comment: Order Date: 12/27/23 Order Info: [id number] - CMP Order Info: - LIPID Order Info: [id number] - TSH Performed By: #### L 500.4100, L501.9520, L502.0500, L500.4050 #### [facility] [address] [place], [address] ALT [Catalytic activity/Vol] 13 U/L Normal <=34 [facility] Comment on above: Order Comment: Order Date: 12/27/23 Order Info: [id number] - CMP Order Info: - LIPID Order Info: [id number] - TSH Performed By: #### L 500.4100, L501.9520, L502.0500, L500.4050 #### [facility] [address] [place], [address] AST [Catalytic activity/Vol] 20 U/L Normal <=31 [facility] Comment on above: Order Comment: Order Date: 12/27/23 Order Info: [id number] - CMP Order Info: [id number] - LIPID Order Info: 3 - TSH Performed By: #### L 500.4100, L501.9520, L502.0500, L500.4050 #### [facility] [address] [place], [address] Bilirubin [Mass/Vol] 0.79 mg/dL Normal 0.00-1.30 [facility] Comment on above: Order Comment: Order Date: 12/27/23 Order Info: [id number]- - CMP Order Info: [id number] - LIPID Order Info: [id number] - TSH Performed By: #### L 500.4100, L501.9520, L502.0500, L500.4050 #### [facility] [address] [place], [address] BUN/CRE 11.7 RATIO Normal 10-20 [facility] Comment on above: Order Comment: Order Date: 12/27/23 Order Info: [id number] - CMP Order Info: [id number] - LIPID Order Info: [id number] - TSH Performed By: #### L 500.4100, L501.9520, L502.0500, L500.4050 #### [facility] [address] [place], [address] Calcium [Mass/Vol] 9.4 mg/dL Normal 7.6-11.[address] [facility] Comment on above: Order Comment: Order Date: 12/27/23 Order Info: [id number] - CMP Order Info: [id number] - LIPID Order Info: [id number] - TSH Performed By: #### L 500.4100, L501.9520, L502.0500, L500.4050 #### [facility] [address] [place], [address] Chloride [Moles/Vol] 104 mmol/L Normal 98-108 [facility] Comment on above: Order Comment: Order Date: 12/27/23 Order Info: [id number]- - CMP Order Info: - LIPID Order Info: [id number] - TSH Performed By: #### L 500.4100, L501.9520, L502.0500, L500.4050 #### [facility] [address] [place], [address] CO2 [Moles/Vol] 28.8 mmol/L Normal 21.0-32.0 [facility] Comment on above: Order Comment: Order Date: 12/27/23 Order Info: [id number] - CMP Order Info: - LIPID Order Info: 3 - TSH Performed By: #### L 500.4100, L501.9520, L502.0500, L500.4050 #### [facility] [address] [place], [address] Creatinine [Mass/Vol] 0.98 mg/dL Normal 0.70-1.20 [facility] Comment on above: Order Comment: Order Date: 12/27/23 Order Info: [id number] - CMP Order Info: - LIPID Order Info: [id number] - TSH Performed By: #### L 500.4100, L501.9520, L502.0500, L500.4050 #### [facility] [address] [place], [address] GAP 10 Normal 5-15 [facility] Comment on above: Order Comment: Order Date: 12/27/23 Order Info: [id number] - CMP Order Info: - LIPID Order Info: 3 - TSH Performed By: #### L 500.4100, L501.9520, L502.0500, L500.4050 #### [facility] [address] [place], [address] GFR/1.73 sq M.predicted among non-blacks MDRD (S/P/Bld) [Vol rate/Area] 65 mL/min/{1.73_m2} Normal >60 [facility] Comment on above: Order Comment: Order Date: 12/27/23 Order Info: [id number] - CMP Order Info: [id number] - LIPID Order Info: [id number] - TSH Result Comment: mL/m in/1.73m2 CKD-EPI Creatinine Equation (2020) Performed By: #### L 500.4100, L501.9520, L502.0500, L500.4050 #### [facility] [address] [place], [address] Globulin (S) [Mass/Vol] 2.9 g/dL Normal 2.2-4.2 [facility] Comment on above: Order Comment: Order Date: 12/27/23 Order Info: [id number] - CMP Order Info: - LIPID Order Info: [id number] - TSH Performed By: #### L 500.4100, L501.9520, L502.0500, L500.4050 #### [facility] [address] [place], [address] Glucose [Mass/Vol] 84 mg/dL Normal 70-[address] [facility] Comment on above: Order Comment: Order Date: 12/27/23 Order Info: [id number] - CMP Order Info: - LIPID Order Info: [id number] - TSH Performed By: #### L 500.4100, L501.9520, L502.0500, L500.4050 #### [facility] [address] [place], [address] Potassium [Moles/Vol] 3.8 mmol/L Normal 3.3-5.1 [facility] Comment on above: Order Comment: Order Date: 12/27/23 Order Info: [id number] - CMP Order Info: - LIPID Order Info: [id number] - TSH Performed By: #### L 500.4100, L501.9520, L502.0500, L500.4050 #### [facility] [address] [place], [address] Sodium [Moles/Vol] 142 mmol/L Normal 133-[address] [facility] Comment on above: Order Comment: Order Date: 12/27/23 Order Info: [id number] - CMP Order Info: [id number] - LIPID Order Info: [id number] - TSH Performed By: #### L 500.4100, L501.9520, L502.0500, L500.4050 #### [facility] [address] [place], [address] T PROT 7.2 g/dL Normal 5.9-8.4 [facility] Comment on above: Order Comment: Order Date: 12/27/23 Order Info: [id number] - CMP Order Info: [id number] - LIPID Order Info: [id number] - TSH Performed By: #### L 500.4100, L501.9520, L502.0500, L500.4050 #### [facility] [address] [place], [address] Urea nitrogen [Mass/Vol] 11 mg/dL Normal 4-19 [facility] Comment on above: Order Comment: Order Date: 12/27/23 Order Info: [id number] - CMP Order Info: [id number] - LIPID Order Info: [id number] - TSH Performed By: #### L 500.4100, L501.9520, L502.0500, L500.4050 #### [facility] [address] [place], [address] GFR/1.73 sq M.predicted giancarlo g non-blacks MDRD (S/P/Bld) [Vol rate/Area]Ordered By: Sinan Cooper on 07-24-2024 Estimated GFR (MDRD) Non-Af Amer 65 >60 [facility] Comment on above: mL/min/1.73m2 CKD-EP I Creatinine Equation (2020) L506.1001on 07-24-2024 Vitamin D 25-OH 59.5 ng/mL Normal 30-100 [facility] Comment on above: Order Comment: Order Date: 12/27/23 Order Info: [id number] - CMP Order Info: [id number] - LIPID Order Info: [id number] - TSH Result Comment: Daniela min D Status Deficiency: <20 ng/mL (50nmol/L) Insufficiency: 20-30 ng/mL (50-75 nmol/L) Sufficiency: 30-100 ng/mL (75-250 nmol/L) Toxicity: >100 ng/mL (>250 nmol/L) Performed By: #### L 506.1001 #### [facility] [address] [place], [place], [address] LDL calc ser/plasOrdered By: Sinan Cooper on 07-24-2024 LDL Cholesterol, Calculated 93 mg/dL [facility] Comment on above: Ruxxrabrey=966-787 m g/dL & Higher Nzpb=642 mg/dL or greater Laboratory - Chemistry and C hemistry - challengeOrdered By: Sinan Cooper on 07-24-2024 AST [Catalytic activity/Vol] 20 U/L <32 [facility] Lipid Profileon 07-24-2024 CHOL:HDL 2.20 Normal [facility] Comment on above: Order Comment: Order Date: 12/27/23 Order Info: [id number] - CMP Order Info: [id number] - LIPID Order Info: [id number] - TSH Performed By: #### L 500.4100, L501.9520, L502.0500, L500.4050 #### [facility] [address] [place], [place], [address] Cholesterol [Mass/Vol] 189 mg/dL Normal <=200 [facility] Comment on above: Order Comment: Order Date: 12/27/23 Order Info: [id number] - CMP Order Info: [id number] - LIPID Order Info: 3 - TSH Result Comment: Chol esterol level, Desirable <200 mg/dL Borderline high cholesterol 200-239 mg/dL High cholesterol >=240 mg/dL Recommendations of the NCEP Adult Treatment Panel for the following risk-cutoff thresholds for the [place] Citizen population. Performed By: #### L 500.4100, L501.9520, L502.0500, L500.4050 #### [facility] [address] [place], [address] Cholesterol in HDL [Mass/Vol] 86 mg/dL Normal [facility] Comment on above: Order Comment: Order Date: 12/27/23 Order Info: 07- - CMP Order Info: [id number] - LIPID Order Info: [id number] - TSH Result Comment: Danyell onal Cholesterol Education Program (NCEP) guidelines: <40 mg/dL: Low HDL-cholesterol (major risk factor for CHD) >= 60 mg/dL: High HDL-cholesterol (negative risk factor for CHD) HDL-cholesterol is affected by a number of factors, e.g. smoking, exercise, hormones, sex and age. Performed By: #### L 500.4100, L501.9520, L502.0500, L500.4050 #### [facility] [address] [place], [address] Cholesterol in LDL [Mass/Vol] 93 mg/dL Normal [facility] Comment on above: Order Comment: Order Date: 12/27/23 Order Info: 07 - CMP Order Info: - LIPID Order Info: 3 - TSH Result Comment: Bord kmlwqt=126-390 mg/dL Higher Ihbb=446 mg/dL or greater Performed By: #### L 500.4100, L501.9520, L502.0500, L500.4050 #### [facility] [address] [place], [address] Cholesterol in VLDL [Mass/Vol] 10 mg/dL Normal 5-40 [facility] Comment on above: Order Comment: Order Date: 12/27/23 Order Info: [id number] - CMP Order Info: [id number] - LIPID Order Info: [id number] - TSH Performed By: #### L 500.4100, L501.9520, L502.0500, L500.4050 #### [facility] [address] [place], [address] Triglyceride [Mass/Vol] 49 mg/dL Normal [facility] Comment on above: Order Comment: Order Date: 12/27/23 Order Info: [id number] - CMP Order Info: [id number] - LIPID Order Info: [id number] - TSH Result Comment: The drugs N-Acetylcysteine and Metamizole may falsely depress this assay. Normal range: <150 mg/dL Borderline High: 150-199 mg/dL High: 200-499 mg/dL Very High: >500 mg/dL Performed By: #### L 500.4100, L501.9520, L502.0500, L500.4050 #### [facility] [address] [place], [address] Microalbumin,Random Urineon 07-24-2024 MICROALBUMIN,UR 26.9 mg/L Normal NO RANGE EST. [facility] Comment on above: Order Comment: Order Date: 12/27/23 Order Info: [id number] - MIALB Performed By: #### L 500.4100, L501.9520, L502.0500, L500.4050 #### [facility] [address] [place], [address] Potassium (Unsp spec) [Mass/ Vol]Ordered By: Sinan Cooper on 07-24-2024 Potassium [Moles/Vol] 3.8 mmol/L 3.3-5.1 [facility] Screening total cholesterol/ high density lipoprotein (HDL) cholesterol ratioOrdered By: Sinan Cooper on 07-24-2024 Cholesterol.total/Sherine sterol in HDL [Mass ratio] 2.20 {ratio} [facility] Serum creatinine measurement (mass/volume)Ordered By: Sinan Cooper on 07-24-2024 Creatinine [Mass/Vol] 0.98 mg/dL 0.70-1.20 [facility] Serum globulin measurementOr dered By: Sinan Cooper on 07-24-2024 Globulin (S) [Mass/Vol] 2.9 g/dL 2.2-4.2 [facility] Serum glucose measurement (m ass/volume)Ordered By: Sinan Cooper on 07-24-2024 Glucose [Mass/Vol] 84 mg/dL 70-[address] [facility] Serum or plasma alanine mcginnis otransferase (ALT) measurementOrdered By: Sinan Cooper on 07-24-2024 ALT [Catalytic activity/Vol] 13 U/L <35 [facility] Serum or plasma albumin jerman urement (mass/volume)Ordered By: Sinan Cooper on 07-24-2024 Albumin [Mass/Vol] 4.3 g/dL 3.4-4.[address] [facility] Serum or plasma albumin/glob ulin mass ratioOrdered By: Sinan Cooper on 07-24-2024 Albumin/Globulin [Mass ratio] 1.5 {ratio} 0.9-2.4 [facility] Serum or plasma alkaline brooke sphatase measurementOrdered By: Sinan Cooper on 07-24-2024 ALP [Catalytic activity/Vol] 71 U/L 35-104 [facility] Serum or plasma calcium jerman urement (mass/volume)Ordered By: Sinan Cooper on 07-24-2024 Calcium [Mass/Vol] 9.4 mg/dL 7.6-11.[address] [facility] Serum or plasma cholesterol in HDL measurement (mass/volume)Ordered By: Sinan Cooper on 07-24-2024 Cholesterol in HDL [Mass/Vol] 86 mg/dL >40 [facility] Comment on above: National Cholesterol Education Program (NCEP) guidelines:<40 mg/dL: Low HDL-cholesterol (major risk factor for CHD)>= 60 mg/dL: High HDL-cholesterol (negative risk factor for CHD)HDL-cholesterol is affected by a number of factors, e.g. smoking, exercise, hormones, sex and age. Serum or plasma cholesterol measurement (mass/volume)Ordered By: Sinan Cooper on 07-24-2024 Cholesterol [Mass/Vol] 189 mg/dL <201 [facility] Comment on above: Cholesterol level, D esirable <200 mg/dLBorderline high cholesterol 200-239 mg/dLHigh cholesterol >=240 mg/dLRecommendations of the NCEP Adult Treatment Panel for the following risk-cutoff thresholds for the [place] Citizen population. Serum or plasma urea nitroge n measurement (mass/volume)Ordered By: Sinan Cooper on 07-24-2024 Urea nitrogen [Mass/Vol] 11 mg/dL 4-19 [facility] Sodium levelOrdered By: Martín Cooper on 07-24-2024 Sodium [Moles/Vol] 142 mmol/L 133-[address] [facility] TSH DL <= 0.005 mIU/L QnOrde red By: Sinan Cooper on 07-24-2024 Thyroid Stimulating Hormone (TSH) 0.468 uIU/mL 0.300-4.200 [facility] Thyroid Stim Hormone (TSH)on 07-24-2024 TSH 0.468 uIU/mL Normal 0.300-4.200 [facility] Comment on above: Order Comment: Order Date: 12/27/23 Order Info: [id number] - CMP Order Info: [id number] - LIPID Order Info: [id number] - TSH Performed By: #### L 500.4100, L501.9520, L502.0500, L500.4050 #### [facility] Laboratory [facility] [address] [place], [place], [id number] Total proteinOrdered By: Clinton Cooper on 07-24-2024 Protein [Mass/Vol] 7.2 g/dL 5.9-8.[address] [facility] Triglycerides measurementOrd ered By: Sinan Cooper on 07-24-2024 Triglyceride [Mass/Vol] 49 mg/dL <199 [facility] Comment on above: The drugs N-Acetylcy steine and Metamizole may falsely depress this assay. Normal range: <150 mg/dLBorderline High: 150-199 mg/dLHigh: 200-499 mg/dLVery High: >500 mg/dL Vitamin D, 25-hydroxyOrdered By: Sinan Cooper on 07-24-2024 Vitamin D 25-Hydroxy 59.5 ng/mL 30-100 [facility] Comment on above: Vitamin D StatusDefi ciency: <20 ng/mL (50nmol/L)Insufficiency: 20-30 ng/mL (50-75 nmol/L)Sufficiency: 30-100 ng/mL (75-250 nmol/L)Toxicity: >100 ng/mL (>250 nmol/L) Cerv Spine 4 or 5 Viewson Cerv Spine 4 or 5 Views [facility] Imaging Services [address] [place] [address] Cerv Spine 4 or 5 Views MR#: [id number] Acct: [id number] Name: JULIENNE JAMIL Rep #: [id number] : 1960 F 63 From: Jony Santiago MD PCP: Dr. Sinan Cooper MD Status: REG CLI Study: Cerv Spine 4 or 5 Views Date of Exam: 11/03/23 Exam# [id number] Ordering Dr: Alirio Madden MD -[id number] STUDY: X-RAY - CERVICAL SPINE REASON FOR EXAM: Female, 63 years old. Neck pain TECHNIQUE: 5 view(s) of the cervical spine were obtained. COMPARISON: None FINDINGS: Normal anterior atlantoaxial articulation. Normal odontoid process. Normal cervical lordosis. 2 mm of anterolisthesis of C5 on C6. Normal vertebral bodies and endplates. There is multi-level degenerative disc disease with multilevel disc space narrowing. Normal visualized intervertebral neuroforamina. The soft tissue structures are unremarkable. RAD/Cerv Spine 4 or 5 Views IMPRESSION: Degenerative disc disease lower cervical spine with 2 mm of anterolisthesis of C5 on C6. MRI may be useful to Electronically Signed: Jony Santiago MD at 10:20 EDT , CC: Dr. Alirio Madden MD; Dr. Sinan Cooper MD House Fellow: Signed Normal [facility] Basophil percentageOrdered B y: Alirio Madden on 06-08-2023 Bilirubin [Mass/Vol] 1.00 mg/dL 0.20-1.00 [facility] Comment on above: For patients on eltr ombopag therapy, use of Dimension [place] TBIL is not recommended. Chloride [Moles/Vol] 99 mmol/L 98-107 [facility] Cholesterol [Mass/Vol] 178 mg/dL <200 [facility] Comment on above: <200 mg/dL Desirable 200-240 mg/dL Borderline >240 mg/dL High Risk Glucose [Mass/Vol] 86 mg/dL 74-[address] [facility] Hemoglobin (Bld) [Mass/Vol] 12.2 g/dL 12.0-15.0 [facility] Potassium [Moles/Vol] 3.6 mmol/L 3.5-5.1 [facility] Protein [Mass/Vol] 7.6 g/dL 6.4-8.[address] [facility] Sodium [Moles/Vol] 133 mmol/L 136-[address] [facility] Triglyceride [Mass/Vol] 45 mg/dL <199 [facility] Comment on above: The drugs N-Acetylcy steine and Metamizole may falsely depress this assay.Serum Triglycerides Reference Interval Normal <150 mg/dL Borderline high 150 - 199 mg/dL High 200 - 499 mg/dL Very High > or = 500 mg/dL WBC (Bld) [#/Vol] 6.7 10*3/uL 4.4-11.[address] [facility] Determination of erythrocyte mean corpuscular volume (MCV)Ordered By: Alirio Madden on 06-08-2023 MCV (RBC) [Entitic vol] 94.4 fL 81-99 [facility] Erythrocyte distribution wid th ratioOrdered By: Alirio Madden on 06-08-2023 Erythrocyte distribution width (RBC) [Ratio] 12.9 % 11.6-14.6 [facility] [facility] Erythrocyte distribution wid th standard deviationOrdered By: Alirio Madden on 06-08-2023 Erythrocyte distribution width (RBC) [Entitic vol] 44.2 fL 35.1-43.9 [facility] Hematocrit Auto (Bld) [Volum e fraction]Ordered By: Alirio Madden on 06-08-2023 Hematocrit (Bld) [Volume fraction] 38.6 % 37-47 [facility] Laboratory - Chemistry and C hemistry - challengeOrdered By: Alirio Madden on 06-08-2023 Albumin/Globulin [Mass ratio] 1.2 {ratio} 0.9-2.4 [facility] ALP [Catalytic activity/Vol] 69 U/L 45-117 [facility] ALT [Catalytic activity/Vol] 23 U/L 13-56 [facility] Cholesterol in HDL [Mass/Vol] 89 mg/dL >40 [facility] Comment on above: The drugs N-Acetylcy steine and Metamizole may falsely depress this assay. Reference Range HDL <40 mg/dL Low HDL Cholesterol HDL >or= 60 mg/dL High HDL Cholesterol Cholesterol in LDL [Mass/Vol] 80 mg/dL 0-130 [facility] CO2 [Moles/Vol] 30.0 mmol/L 21.0-32.0 [facility] Globulin (S) [Mass/Vol] 3.5 g/dL 2.2-4.2 [facility] Magnesium [Mass/Vol] 2.2 mg/dL 1.6-2.6 [facility] Urea nitrogen/Creatinine [Mass ratio] 11.9 mg/mg 10-20 [facility] Laboratory - Hematology and Cell countsOrdered By: Alirio Madden on 06-08-2023 MCH (RBC) [Entitic mass] 29.8 pg 27.0-32.0 [facility] MCHC (RBC) [Mass/Vol] 31.6 g/dL 32-36 [facility] Platelet mean volume (Bld) [Entitic vol] 11.8 fL 6.2-12.0 [facility] Platelets (Bld) [#/Vol] 240 10*3/uL 150-450 [facility] No Panel InformationOrdered By: Alirio Madden on 06-08-2023 Estimated GFR (MDRD) Amer 88 mL/min >60 [facility] Comment on above: GFR Calc Estimated GFR (MDRD) Non-Af Amer 73 mL/min >60 [facility] Comment on above: Non- GFR Calc Vitamin D 25-Hydroxy 91.5 ng/mL [facility] Comment on above: Vitamin D 25(OH) Sta tus Range Deficiency <20 ng/mL (50nmol/L) Insufficiency 20 - 30 ng/mL (50 - 75 nmol/L) Sufficiency 30 - 100 ng/mL (75 - 250 nmol/L) Toxicity >100 ng/mL (>250 nmol/L) VLDL Cholesterol 9 mg/dL 5-40 [facility] RBC Auto (Bld) [#/Vol]Ordere d By: Alirio Madden on 06-08-2023 RBC (Bld) [#/Vol] 4.09 10*6/uL 4.2-5.[address] [facility] Serum or plasma calcium jerman urement (mass/volume)Ordered By: Alirio Madden on 06-08-2023 Calcium [Mass/Vol] 9.4 mg/dL 8.5-10.[address] [facility] Serum or plasma creatinine m easurement (mass/volume)Ordered By: Alirio Madden on 06-08-2023 Creatinine [Mass/Vol] 0.84 mg/dL 0.55-1.02 [facility] Comment on above: The validity of the calculated GFR & GFRAA in patients over 70 years has not been determined. Clinical correlation is essential. Serum or plasma thyroid stim ulating hormone (TSH) measurement (units/volume)Ordered By: Alirio Madden on 06-08-2023 TSH Qn 2.30 uIU/mL 0.358-3.74 [facility] Serum or plasma urea nitroge n measurement (mass/volume)Ordered By: Alirio Madden on 06-08-2023 Urea nitrogen [Mass/Vol] 10 mg/dL 7-18 [facility] Thin prep Papanicolaou smear with manual screeningOrdered By: Alirio Madden on 06-08-2023 Thin prep Papanicolaou smear with manual screening 4.1 g/dL 3.2-5.0 [facility] Thin prep Papanicolaou smear with manual screening 19 U/L 15-37 [facility] Thin prep Papanicolaou smear with manual screening 4 5-15 [facility] Absolute lymphocyte countOrd ered By: Dr. Cooper on 07-27-2022 Lymphocytes Auto (Unsp spec) [#/Vol] 1.52 10*3/uL 0.83-4.51 [facility] Basophil percentageOrdered B y: Dr. Cooper on 07-27-2022 Basophils/100 WBC (Bld) 1.7 % 0-1 [facility] Bilirubin [Mass/Vol] 0.50 mg/dL 0.20-1.00 [facility] Comment on above: For patients on eltr ombopag therapy, use of Dimension [place] TBIL is not recommended. Chloride [Moles/Vol] 105 mmol/L 98-107 [facility] Eosinophils/100 WBC (Bld) 3.9 % 0-5 [facility] Glucose [Mass/Vol] 115 mg/dL 74-[address] [facility] Comment on above: Fasting Glucose resu lt from 100 to 125 mg/dL suggests IMPAIRED HOMEOSTASIS per A.D.A. criteria. Neutrophils (Bld) [#/Vol] 3.2 10*3/uL 2.0-7.7 [facility] Neutrophils/100 WBC (Bld) 59.1 % 47-70 [facility] Potassium [Moles/Vol] 3.9 mmol/L 3.5-5.1 [facility] Protein [Mass/Vol] 6.9 g/dL 6.4-8.[address] [facility] Sodium [Moles/Vol] 138 mmol/L 136-[address] [facility] WBC (Bld) [#/Vol] 5.4 10*3/uL 4.4-11.[address] [facility] Blood erythrocytes count (nu mber/volume)Ordered By: Dr. Cooper on 07-27-2022 RBC (Bld) [#/Vol] 3.95 10*6/uL 4.2-5.[address] [facility] Blood hemoglobin measurement (mass/volume)Ordered By: Dr. Cooper on 07-27-2022 Hemoglobin (Bld) [Mass/Vol] 12.0 g/dL 12.0-15.0 [facility] Blood lymphocytes/100 leukoc ytesOrdered By: Dr. Cooper on 07-27-2022 Lymphocytes/100 WBC (Bld) 28.4 % 19-41 [facility] Blood monocytes/100 leukocyt esOrdered By: Dr. Cooper on 07-27-2022 Monocytes/100 WBC (Bld) 6.7 % 0-10 [facility] Blood platelet mean volumeOr dered By: Dr. Cooper on 07-27-2022 Platelet mean volume (Bld) [Entitic vol] 12.3 fL 6.2-12.0 [facility] Determination of erythrocyte mean corpuscular volume (MCV)Ordered By: Dr. Cooper on 07-27-2022 MCV (RBC) [Entitic vol] 95.9 fL 81-99 [facility] Erythrocyte sedimentation ra teOrdered By: Dr. Cooper on 07-27-2022 ESR (Bld) [Velocity] 2 mm/h 0-30 [facility] Hematocrit Auto (Bld) [Volum e fraction]Ordered By: Dr. Cooper on 07-27-2022 Hematocrit (Bld) [Volume fraction] 37.9 % 37-47 [facility] Iron measurement (mass/mass) Ordered By: Dr. Cooper on 07-27-2022 Iron (Unsp spec) [Mass/Mass] 82 ug/dL 50-170 [facility] Laboratory - Chemistry and C hemistry - challengeOrdered By: Dr. Cooper on 07-27-2022 ALP [Catalytic activity/Vol] 58 U/L 45-117 [facility] ALT [Catalytic activity/Vol] 23 U/L 13-56 [facility] CO2 [Moles/Vol] 27.0 mmol/L 21.0-32.0 [facility] Cobalamin (Vitamin B12) [Mass/Vol] 613 pg/mL 211-911 [facility] Globulin (S) [Mass/Vol] 3.0 g/dL 2.2-4.2 [facility] Urea nitrogen/Creatinine [Mass ratio] 13.5 mg/mg 10-20 [facility] Laboratory - Hematology and Cell countsOrdered By: Dr. Cooper on 07-27-2022 Erythrocyte distribution width (RBC) [Entitic vol] 47.6 fL 35.1-43.9 [facility] Erythrocyte distribution width (RBC) [Ratio] 13.3 % 11.6-14.6 [facility] Immature granulocytes/100 WBC (Bld) 0.200 % 0.0-0.9 [facility] Comment on above: IG% - Immature Granu locytes (promyelocytes, myelocytes and metamyelocytes) > 1% indicates that a LEFT SHIFT is Present. MCH (RBC) [Entitic mass] 30.4 pg 27.0-32.0 [facility] Nucleated RBC/100 WBC (Bld) [Ratio] 0 % 0-5 [facility] MCHC Auto (RBC) [Mass/Vol]Or dered By: Dr. Cooper on 07-27-2022 MCHC (RBC) [Mass/Vol] 31.7 g/dL 32-36 [facility] No Panel InformationOrdered By: Dr. Cooper on 07-27-2022 Estimated GFR (MDRD) Amer 76 mL/min >60 [facility] Comment on above: GFR Calc Estimated GFR (MDRD) Non-Af Amer 63 mL/min >60 [facility] Comment on above: Non- GFR Calc Ionized Calcium 4.8 mg/dL 4.5-5.6 [facility] Comment on above: Performed at: [facility] [place] [id number] Director: Bradley Aguilar PhD, Phone: [phone] Parathyroid Hormone (Intact) 37.8 pg/mL 18.4-80.1 [facility] Thyroid Stimulating Hormone (TSH) 1.17 uIU/mL 0.358-3.74 [facility] Vitamin D 25-Hydroxy 93.7 ng/mL [facility] Comment on above: Vitamin D 25(OH) Sta tus Range Deficiency <20 ng/mL (50nmol/L) Insufficiency 20 - 30 ng/mL (50 - 75 nmol/L) Sufficiency 30 - 100 ng/mL (75 - 250 nmol/L) Toxicity >100 ng/mL (>250 nmol/L) Platelets bldOrdered By: Dr. Cooper on 07-27-2022 Platelets (Bld) [#/Vol] 186 10*3/uL 150-450 [facility] Serum or plasma albumin jerman urement (mass/volume)Ordered By: Dr. Cooper on 07-27-2022 Albumin [Mass/Vol] 3.9 g/dL 3.2-5.[address] [facility] Serum or plasma albumin/glob ulin mass ratioOrdered By: Dr. Copoer on 07-27-2022 Albumin/Globulin [Mass ratio] 1.3 {ratio} 0.9-2.4 [facility] Serum or plasma calcium jerman urement (mass/volume)Ordered By: Dr. Cooper on 07-27-2022 Calcium [Mass/Vol] 8.8 mg/dL 8.5-10.[address] [facility] Serum or plasma creatinine m easurement (mass/volume)Ordered By: Dr. Cooper on 07-27-2022 Creatinine [Mass/Vol] 0.96 mg/dL 0.55-1.02 [facility] Comment on above: The validity of the calculated GFR & GFRAA in patients over 70 years has not been determined. Clinical correlation is essential. Serum or plasma ferritin juan a surement (mass/volume)Ordered By: Dr. Cooper on 07-27-2022 Ferritin [Mass/Vol] 31 ng/mL 8-[address] [facility] Serum or plasma urea nitroge n measurement (mass/volume)Ordered By: Dr. Cooper on 07-27-2022 Urea nitrogen [Mass/Vol] 13 mg/dL 7-18 [facility] Thin prep Papanicolaou smear with manual screeningOrdered By: Dr. Cooper on 07-27-2022 Thin prep Papanicolaou smear with manual screening 22 U/L 15-37 [facility] Thin prep Papanicolaou smear with manual screening 6 5-15 [facility] Clinical Summary: HMSPatient IDon 11-16-2018 [facility] Work Phone: Clinical Lists Update: Prelo ad Extendedon 11-14-2018 Tobacco smoking status NHIS Tobacco smoking status NHIS [facility] Work Phone: Clinical Summary: Data Submi tted by Patient in [place] 11-14-2018 #DEP CHLDRN No [facility] Work Phone: ALLSPECINS I avoid foods with gluten due and limit dairy consumption due to IBS and joint issues. 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 [facility] Work Phone: DEP ETOH USE No [facility] Work Phone: DEP EXERCISE Yes [facility] Work Phone: DEP EXERTYP walking [facility] Work Phone: DEP MED LIST Synthroid 0.1 mg Tab, 1 times per day,Clonazepam 0.25 mg Disintegrating Tablet, as_needed,Venlafaxi ne 37.5 mg Cap Er, 1 times per day [facility] Work Phone: DEP MOM PMH Arthritis [facility] Work Phone: DEP PMH Arthritis, Fractures, High blood pressure, Hypothyroidism, Irritable bowel syndrome, Melanoma, Osteopenia [facility] Work Phone: DEP SH CSMO never smoker [facility] Work Phone: DEP SH MAST [facility] Work Phone: 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 I had a broken collar bone at age 12. I am taking a low dose of Effexor for PMS, which no longer an issue as my periods ended. I recently halved my dosage. I am not completely going off at this time. I hope to do that next year. 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 We live in a ranch style home that has a basement. [facility] Work Phone: MEDICCOMMNTS I take a multi-vitamin, B-Complex, [place] 3 Fish Oil Concentrate, Tumeric capsule, Daily Defense supplement of Adame Polypody for sun-related effects and aging, and OsteoMatrix (calcium, magnesium, Vitamin D, zinc, copper, manganese). [facility] Work Phone: MOM HX COMM My Mother also had asthma, scoliosis, and depression. Her arthritis was rheumatoid arthritis. [facility] Work Phone: MOTHER A/D [facility] Work Phone: RLATNSHPINFR Self [facility] Work Phone: SIS PMH COM Asthma. My oldest sister is highly sensitive to anesthesia and antibiotics. [facility] Work Phone: SWHOUTYPE house [facility] Work Phone: WEBSURGCOM Melanoma excision Foot surgery was an ingrown toenail Hand surgery was the removal of infected fingernail [facility] Work Phone: #DEP CHLDRN No [facility] Work Phone: ALLSPECINS I avoid foods with gluten due and limit dairy consumption due to IBS and joint issues. 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 [facility] Work Phone: DEP ETOH USE No [facility] Work Phone: DEP EXERCISE Yes [facility] Work Phone: DEP EXERTYP walking [facility] Work Phone: DEP MED LIST Synthroid 0.1 mg Tab, 1 times per day,Clonazepam 0.25 mg Disintegrating Tablet, as_needed,Venlafaxi ne 37.5 mg Cap Er, 1 times per day [facility] Work Phone: DEP MOM PMH Arthritis [facility] Work Phone: DEP PMH Arthritis, Fractures, High blood pressure, Hypothyroidism, Irritable bowel syndrome, Melanoma, Osteopenia [facility] Work Phone: DEP SH CSMO never smoker [facility] Work Phone: DEP SH MAST [facility] Work Phone: 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 I had a broken collar bone at age 12. I am taking a low dose of Effexor for PMS, which no longer an issue as my periods ended. I recently halved my dosage. I am not completely going off at this time. I hope to do that next year. 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 We live in a ranch style home that has a basement. [facility] Work Phone: MEDICCOMMNTS I take a multi-vitamin, B-Complex, [place] 3 Fish Oil Concentrate, Tumeric capsule, Daily Defense supplement of Adame Polypody for sun-related effects and aging, and OsteoMatrix (calcium, magnesium, Vitamin D, zinc, copper, manganese). [facility] Work Phone: MOM HX COMM My Mother also had asthma, scoliosis, and depression. Her arthritis was rheumatoid arthritis. [facility] Work Phone: MOTHER A/D [facility] Work Phone: RLATNSHPINFR Self [facility] Work Phone: [facility] COM Asthma. My oldest sister is highly sensitive to anesthesia and antibiotics. [facility] Work Phone: SWHOUTYPE house [facility] Work Phone: WEBSURGCOM Melanoma excision Foot surgery was an ingrown toenail Hand surgery was the removal of infected fingernail [facility] Work Phone: Otheron 04-05-2006 CONVERTED ELECTRONIC SIGNATURE ROSALVA LEE M.D., PATHOLOGIST (Electronic signature on file) Final Signed Out: 04/05/2006 13:33 [facility] CONVERTED FINAL DIAGNOSIS RIGHT RING FINGER NAILBED, DEBRIDEMENT - SEGMENT OF BENIGN SQUAMOUS MUCOSA WITH MILD DERMAL PERIVASCULAR CHRONIC INFLAMMATION. [facility] CONVERTED ORDERING PROVIDER Ordering Provider: EUGENE MOMIN [facility] Vital Signs Date Time Vital Sign Value Performing Clinician Facility NEGATED: Highlighted [id number] 14:06-0400 BMI (Body Mass Index) 20.44 kg/m2 Ruba Serrilli OIL PROCESSING TECHNICIAN [facility] Work Phone: NEGATED: Highlighted [id number] 14:06-0400 Body weight 59.88 kg Ruba Serrilli OIL PROCESSING TECHNICIAN [facility] Work Phone: NEGATED: Highlighted [id number] 14:06-0400 Body weight 60 kg Ruba Serrilli OIL PROCESSING TECHNICIAN [facility] Work Phone: NEGATED: Highlighted [id number] 14:06-0400 BP Diastolic 73 mm[Hg] Ruba Serrilli OIL PROCESSING TECHNICIAN [facility] Work Phone: NEGATED: Highlighted [id number] 14:06-0400 BP Systolic 135 mm[Hg] Ruba Serrilli OIL PROCESSING TECHNICIAN [facility] Work Phone: NEGATED: Highlighted [id number] 14:06-0400 Height 171.45 cm Ruba Serrilli OIL PROCESSING TECHNICIAN [facility] Work Phone: NEGATED: Highlighted [id number] 14:06-0400 Height 171 cm Ruba Leal OIL PROCESSING TECHNICIAN [facility] Work Phone: NEGATED: Highlighted [id number] 14:06-0400 Pulse (Heart Rate) 76 /min Ruba Leal OIL PROCESSING TECHNICIAN [facility] Work Phone: Encounters Encounter Date Encounter Type Care Provider Facility Start: 07-31-2024 Encounter for genera l adult medical examination without abnormal findings Sinan Cooper [facility] Start: 07-24-2024 End: 07-24-[address] Sinan Cooper MD Work Phone: [facility] Work Phone: Start: 07-24-2024 End: 07-24-[address] Sinan Cooper MD [facility] Work Phone: Start: 07-24-2024 End: 07-24-2024 ambulatory Sinan Cooper Facility:[facility] Start: 11-03-2023 End: 11-03-2023 ambulatory Alirio Chano Facility:[facility] Start: 06-08-2023 End: 06-08-2023 ambulatory [facility] Work Phone: Start: 06-08-2023 End: 06-08-2023 Patient encounter procedure [facility] Work Phone: Start: 07-27-2022 End: 07-27-2022 ambulatory [facility] Work Phone: Start: 07-27-2022 End: 07-27-2022 Patient encounter procedure [facility] Start: 11-16-2018 End: 11-16-2018 Patient encounter procedure Christopher Avila MD Work Phone: [facility] Work Phone: Start: 04-01-2006 End: 04-01-2006 Patient encounter procedure Eugene Momin Work Phone: [facility] Start: 04-01-2006 Results Only Eugene Gladys Liliane Work Phone: [facility] Procedures Date Procedure Procedure Detail Performing Clinician [...] Author Start: 12-25-2019 Influenza vaccination INFLUENZA (#1) [facility] Start: 11-16-2018 End: 11-16-2018 [facility]ment [facility] Work Phone: Start: 06-17-2011 DIABETES SCREEN DIABETES SCREEN [facility] Start: 2010 SHINGRIX VACCINE (1 of 2) SHINGRIX VACCINE (1 of 2) [facility] Start: 2010 Tuberculosis screening COLORECTAL CANCER SCREENING,SEE MODIFIER [facility] Start: 2005 LIPID SCREEN LIPID SCREEN [facility] Start: 2000 Mammography MAMMOGRAM [facility] Start: 1990 HPV TESTING HPV TESTING [facility] Start: 1981 PAP TESTING PAP TESTING [facility] Start: 08-06-1979 Urine microalbumin profile DTAP,TDAP,TD (1 - Tdap) [facility] Start: 1978 ANNUAL PCP TEAM CHRONIC DISEASE VISIT ANNUAL PCP TEAM CHRONIC DISEASE VISIT [facility] Start: 1978 HEPATITIS C SCREENING HEPATITIS C SCREENING [facility] Start: 1978 HIV SCREENING HIV SCREENING [facility] Payers Date Payer Category Payer Private Health Insurance [id number] 2023 Self-pay [id number] 2023 Unknown [id number] 2012 Private Health Insurance PEREZ Gallardo [id number] 2002 Unknown MMO ZZZMMO SUPER MED PLUS [id number] 2002-2018 PPO [id number] Unknown [id number] Unknown [id number] Social History Date Type Detail Facility Start: 10-19-2005 End: 11-05-2018 Tobacco smoking status NHIS Never smoker [facility] Start: 10-19-2005 Alcohol intake 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 Evaluation note Note Date & Type Note Facility Evaluation note No assessment information availa ble [facility] Work Phone: Reason for referral (narrative) Note Date & Type Note Facility Reason for referral (narrative) No reason for referral information available [facility] Work Phone: History of Past Illness Problem Noted Date Resolved Date MALIGNANT MELANOMA///PERS HX SKIN MALIGNANCY NEC 11/14/2006 06/23/2009 Chief Complaint Chief Complaint Description Start Date left ring finger cysyt/ mass Preliminary chief co mplaint data, not yet signed by the author as of Instructions Instruction Description Start Date Completed Advance Directives No Advanced Directives Records Found Advance Directive Response Recorded Date/ Time Living Will No November 05, 2018 8:13pm Power of Rv Repairer No November 05 9 8:13pm Advance Directive Response Recorded Date/ Time Living Will No November 05, 2018 7:13pm Power of Rv Repairer No November 05 9 7:13pm Assessments There may be information available, but it has not been provided by the sender. Review of System There may be information available, but it has not been provided by the sender. Family History There may be information available, but it has not been provided by the sender.No Family History Records Found History of Present Illness There may be information available, but it has not been provided by the sender. Chief Complaint and Reason for Visit Chief Complaint Admit Date EORDERS July 24, 2024 10:0 6am Summary Purpose Additional Source Comments Source Comments (unrecognize d section and content) In the event this informatio n is protected by the Federal Confidentiality of Alcohol and Drug Abuse Patient Records regulations: The Federal rules restrict any use of the information to criminally investigate or prosecute any alcohol or drug abuse patient.[facility] Reason for Visit (unrecogniz ed section and content) Reason For Visit Description New - 1st visit with practice Preliminary reason f or visit data, not yet signed by the author as of left ring finger cysyt/ mass Care Teams (unrecognized sec tion and content) Team Status: Active Member Role Status Dates Dr. Edis Cooper MD Family Provider Active Dr. Edis Cooper MD Primary Care Provider Activ e Team Status: Inactive Member Role Status Dates Dr. Edis Cooper MD Primary Care Provider, Attending Provider, Referring Provider Active Team Status: Inactive Member Role Status Dates Dr. Edis Cooper MD Primary Care Provider Activ e Alirio Madden MD Attending Provider, Referring Provide r Active Team Status: Active Member Role Status Dates Dr. Sinan Cooper MD Family Provider Active Dr. Sinan Cooper MD Primary Care Provider Acti ve Team Status: Inactive Member Role Status Dates Dr. Sinan Cooper MD Primary Care Provider Acti ve Start: July 24, 2024 End: July 24, 2024 Dr. Sinan Cooper MD Attending Provider Active Start: July 24, 2024 End: July 24, 2024 Dr. Sinan Cooper MD Referring Provider Active Start: July 24, 2024 End: July 24, 2024 Goals (unrecognized section and content) Goals may be documented in a n alternate sectionGoals may be documented in an alternate sectionGoals may be documented in an alternate section INFORMATION SOURCE (unrecogn ized section and content) DATE CREATED AUTHOR 08/01/2024 [facility] FOR RECORDS PERTAINING TO PATIENTS WHO ARE [...] BE BASED ON THE PRIMARY CLINICAL RECORDS. [employer] provides no warranty or guarantee of the accuracy or completeness of information in this document.
[2025-03-29 13:12] LABS: T4 Total, Thyroxin 6.8 ug/dL (4.8-13.9)
== END | disposition home or self-care (01) ==
LOC: MTLAB 09:50
PROVIDERS: PCP Family Medicine; Referring Provider Family Medicine; Visit Provider Family Medicine
DX: E03.9 Hypothyroidism, unspecified (principal)
CPT/HCPCS: 36415; 84436; 84443